=== PATIENT | female | born 2000 | race African-American/Black ===

== ENCOUNTER 2021-06-12 06:39 | Outpatient (CLI) | payer MEDICAID, SELFPAY ==
--- NOTE | 2021-06-12 06:43 | MRI_ITS ---
STUDY: MRI THORACIC SPINE WITHOUT CONTRAST REASON FOR EXAM: Female, 20 years old. pain, INTERVERTEBRAL DISC DEGEN TECHNIQUE: Standardized fat and water weighted pulse sequences were obtained in the sagittal and axial planes. COMPARISON: None. FINDINGS: Normal kyphosis of the thoracic spine. There is no substantial scoliosis. T1-2, T2-3, T3-4, T4-5, T5-6, T6-7, T7-8, T8-9, T9-10, T10-11, T11-12: At T8/T9, there is disc desiccation with a mild bilobed disc protrusion which produces minimal spinal stenosis and no cord compression. Normal visualized thoracic cord. Normal conus medullaris that terminates at the L1.. The soft tissue structures are unremarkable. MRI/Spine Thoracic (Routine) IMPRESSION: Mild degenerative disc disease T8/T9 but no cord compression. Electronically Signed: Heron Roberto MD at 9:26 EST ,
== END 2021-06-12 23:59 | disposition home or self-care (01) ==
LOC: MRI 06:43
PROVIDERS: Referring Provider Orthopaedic Surgery; Visit Provider Orthopaedic Surgery
DX: M51.34 Other intervertebral disc degeneration, thoracic region (principal); R52 Pain, unspecified
CPT/HCPCS: 72146

== ENCOUNTER 2022-12-20 19:33 | Emergency (ER) | payer SELFPAY ==
[2022-12-20 19:34] VITALS: BP 150/86; PULSE 90; RESP 18; TEMP 36.7; O2SAT 100; BMI 37.4
--- NOTE | 2022-12-20 19:49 | EDS_ITS ---
<Statement entered by Power Todd MD - 12/21/22 15:03> I have personally performed a face to face assessment of the patient and have reviewed the SHO Note. Dr. Todd: I have personally performed a face to face assessment of the patient and have reviewed the SHO Note. I performed a substantive portion of the visit including all aspects of the following. My hi findings include: History is epigastric pain after eating ice cream. Exam is afebrile. Vital signs noted. Regular rate and rhythm. Lungs clear to auscultation bilaterally. Abdomen soft with minimal tenderness epigastrium, negative Davis sign. Medical Decision Making: Check labs. Diet modification. Follow-up with gastroenterology and/or primary care. Offered antacids, patient declined. Discharged. Other additions or changes: [None] HPI History of Present Illness Chief Complaint: Abd Pain Narrative Narrative: 22-year-old female had epigastric pain and nausea after eating lunch. She had yogurt, spicy beef jerky, and Mario Alberto bandage enchilada. She went to [facility] and had an EKG in the waiting room. Her symptoms resolved so she decided to leave. She went to [facility] and had a milkshake and started having upper abdominal pain again. It is improving with Pepto-Bismol. She states she is chronically constipated and has 2-3 BMs a week with no blood in her stool and no urinary symptoms. No abdominal surgical history. She denies smoking or drinking alcohol. She has irregular periods with last one about 3 weeks ago. PFSH [facility] Home Medications sertraline 100 mg tablet ea PO 05/19/21 [History Last Taken Unknown] Allergy/AdvReac Type Severity Reaction Status Date / Time No Known Allergies Allergy Verified 12/20/22 19:37 Family History (Updated 05/19/21 @ 13:54 by Bisi Eduardo) Other Diabetes Heart disease Mental health disorder Surgical History (Updated 05/19/21 @ 13:52 by Bisi Eduardo) H/O: Social History Smoking Status: Never smoker ROS ROS ED ROS Narrative Constitutional: Negative for fever, chills, malaise. CVS: Negative for chest pain. Respiratory: Negative for shortness of breath. GI: Positive for abdominal pain, nausea. Negative for vomiting, diarrhea, melena, hematochezia. : Negative for dysuria, hematuria or frequency. EXAM Physical Exam Narrative Exam Narrative: CONST: Patient sitting in no acute distress. EYES: Normal inspection. NECK: Normal inspection. RESP: No respiratory distress, CTAB. CVS: Regular rate and rhythm, no murmur, no gallop. ABD: Soft and nontender, no guarding or rebound, nondistended, no hepatosplenomegaly. SKIN: Color normal, no rash, warm, dry, intact. EXTREMITIES: Normal appearance, no pedal edema. NEURO: Oriented x4. PSYCH: Normal affect. Const Vital Signs: 12/20/22 19:34 Temperature 98.1 F Temperature Source Temporal Pulse Rate 90 Respiratory Rate 18 Blood Pressure 150/86 H Blood Pressure Mean 107 Pulse Ox 100 Oxygen Delivery Method Room Air MDM MDM MDM Narrative Medical decision making narrative: History gathered from: Patient and boyfriend Patient has nausea and epigastric pain after eating which occurred twice today. She appears well and nontoxic with stable vital signs. She has normal heart and lung sounds and her abdomen is soft and nontender. However since this occurred twice I will order blood work and treat her with Pepcid and Zofran. CBC is WNL. CMP notable for AST of 204, ALT 131, normal bilirubin and lipase. She may have underlying fatty liver disease. With no abdominal tenderness I do not think a RUQ ultrasound is indicated. I Mo strongly suspect GERD/PUD and was going to prescribe a PPI but she declined saying she would not take it. I recommend she follow-up with her PCP she said she probably will not do this either. I discussed dietary changes and she was discharged in stable condition. Lab Data Attestation: I reviewed the patient's lab results. Labs: Laboratory Results - last 24 hr 12/20/22 20:08 WBC 8.9 RBC 4.33 Hgb 12.1 Hct 37.1 MCV 85.7 MCH 27.9 MCHC 32.6 RDW Std Deviation 43.1 RDW Coeff of Jama 13.8 Plt Count 242 MPV 9.1 Immature Gran % (Auto) 0.200 Neut % (Auto) 76.0 H Lymph % (Auto) 16.1 L Sandoval % (Auto) 6.2 Eos % (Auto) 1.1 Baso % (Auto) 0.4 Absolute Neuts (auto) 6.8 Absolute Lymphs (auto) 1.44 Nucleated RBC % 0 Sodium 140 Potassium 4.0 Chloride 109 H Carbon Dioxide 28.0 Anion Gap 3 L BUN 16 Creatinine 0.89 Estim Creat Clear Calc 84.89 Est GFR (MDRD) Af Amer 101 Est GFR (MDRD) Non-Af 84 BUN/Creatinine Ratio 18.0 Glucose 102 Calcium 8.6 Total Bilirubin 0.20 AST 204 H ALT 131 H Alkaline Phosphatase 92 Total Protein 7.1 Albumin 3.3 Globulin 3.8 Albumin/Globulin Ratio 0.9 Lipase 36 Discharge Plan Triage Chief Complaint: Abd Pain ED Midlevel Provider: Kay Stoddard ED Provider: Power Todd Dx/Rx/DC Orders Clinical Impression: Abnormal transaminases, Acute epigastric pain Instructions: ED GERD (Adult), ED Epigastric Pain Uncertain Cause Prescriptions: No Action sertraline 100 mg tablet PO Primary Care Provider: Delisa Caruso Referrals: NOT,DEFINED [Non-Staff] - Activity Restrictions/Additional Instructions: You can try [id number] Pepcid to treat GERD/stomach ulcers. Avoid spicy or fried or fatty foods.
[2022-12-20] MEDS: Ondansetron 4 MG/2 ML Vial IV (20:18)
[2022-12-20] MEDS: Famotidine 20 MG Tablet PO (20:18)
[2022-12-20 20:20] LABS: Absolute Lymphocyte Count 1.44 X10^3/uL (0.83-4.51); Absolute Neutrophil Count 6.8 X10^3/uL (2.0-7.7); Basophil# 0.04 X10^3/uL; Basophil% 0.4 % (0-1); Eosinophils% 1.1 % (0-5); Hematocrit 37.1 % (37-47); Hemoglobin 12.1 g/dL (12.0-15.0); Lymphocyte # 1.44 X10^3/ul (0.83-4.51); Lymphocyte % 16.1 % (19-41); Mean Corp Hgb Conc 32.6 g/dL (32-36); Mean Corpuscular Hgb 27.9 pg (27.0-32.0); Mean Corpuscular Volume 85.7 fL (81-99); Mean Platelet Vol. 9.1 fl (6.2-12.0); Monocyte# 0.55 X10^3/uL; Monocyte% 6.2 % (0-10); NRBC Flagged by Analyzer 0 % (0-5); Neutrophil # 6.79 X10^3/uL (2.7-7.7); Platelet Count 242 K/mm3 (150-450); RBC Distribution Width CV 13.8 % (11.6-14.6); RBC Distribution Width SD 43.1 fl (35.1-43.9); Red Blood Count 4.33 M/mm3 (4.2-5.4); White Blood Count 8.9 K/mm3 (4.4-11.0)
[2022-12-20 20:33] LABS: ALB/GLOB Ratio 0.9 RATIO (0.9-2.4); AST(SGOT) 204 U/L (15-37); Alanine Aminotransfer ALT/SGPT 131 U/L (13-56); Albumin, Serum 3.3 g/dL (3.2-5.0); Alkaline Phosphatase 92 U/L (45-117); Anion Gap 3 (5-15); BUN 16 mg/dL (7-18); Calcium,Total 8.6 mg/dL (8.5-10.1); Chloride 109 mmol/L (98-107); Creatinine, Serum 0.89 mg/dL (0.55-1.02); EST Glomerular Filtration Rate 84 mL/min (>60); Est Glom Filt Rate - Afr Amer 101 mL/min (>60); Estimated Creatinine Clearance 84.89 ml/min; Globulin 3.8 g/dL (2.2-4.2); Glucose 102 mg/dL (74-106); Lipase 36 U/L (13-75); Protein, Total 7.1 g/dL (6.4-8.2); Sodium Level 140 mmol/L (136-145)
[2022-12-20 21:07] VITALS: BP 122/74; PULSE 75; RESP 16; O2SAT 97
[2022-12-20 21:27] LABS: Internal QC Validated? YES +Cl - CLEAR BKGD; Pregnancy, Urine Negative Negative
== END 2022-12-20 21:08 | disposition home or self-care (01) ==
PROVIDERS: Physician Assistant; Emergency Provider Emergency Medicine; PCP Nurse Practitioner Family; Visit Provider Emergency Medicine
DX: R10.13 Epigastric pain (principal)
CPT/HCPCS: 80053; 81025; 83690; 85025; 96374; 99283; A4216; J2405

== ENCOUNTER 2023-08-24 17:33 | Emergency (ER) | payer SELFPAY ==
[2023-08-24 17:34] VITALS: BP 132/93; PULSE 82; RESP 17; TEMP 36.2; O2SAT 99; BMI 38.5
== END 2023-08-24 18:55 | disposition left against medical advice (07) ==
LOC: ED 18:57
PROVIDERS: PCP Nurse Practitioner Family
DX: Z53.21 Procedure and treatment not carried out due to patient leaving prior to being seen by health care provider (principal)